=== PATIENT | female | born 1995 | race African-American/Black ===

== ENCOUNTER 2021-03-19 13:54 | Observation (INO) | payer MEDICAID ==
[~2021-03-19] VITALS: Ht 157.5 cm; Wt 78.0 kg
[2021-03-19] MEDS ORDERED: FERR-63 PO (14:20)
[2021-03-19] MEDS ORDERED: PREN1TAB22 PO (14:20)
== END 2021-03-19 16:55 | disposition home or self-care (01) ==
LOC: 8 EST LDRP 13:54
PROVIDERS: ADMIT Obstetrics & Gynecology; ATTEND Obstetrics & Gynecology
DX: O26.893 Other specified pregnancy related conditions, third trimester (principal); R10.30 Lower abdominal pain, unspecified; Z3A.38 38 weeks gestation of pregnancy
CPT/HCPCS: 59025; G0378; 99281; G0379

== ENCOUNTER 2021-03-19 19:26 | Inpatient (IN) | payer MEDICAID ==
[~2021-03-19] VITALS: Ht 157.5 cm; Wt 70.3 kg
[~2021-03-19 19:26] MED LIST: FERR-63 PO; PREN1TAB22 PO
[2021-03-19] MEDS ORDERED: LIDOCAINE HCL 1% 20ML VIAL (Pyxis) INJ INFIL SCH (20:15)
[2021-03-19] MEDS ORDERED: NALOXONE HCL 0.4 MG/ML 1ML VIAL IM PRN (20:15)
[2021-03-19] MEDS ORDERED: DEXT 5%/LR + PITOCIN 20UNITS/L 1,000 ML IV SCH ×2 (20:15→21:30)
[2021-03-19] MEDS ORDERED: LACTATED RINGERS 1,000 ML IV SCH (20:15)
[2021-03-19] MEDS ORDERED: CARBOPROST TROMETHAMINE 250 MCG/ML AMPUL IM PRN (20:15)
[2021-03-19] MEDS ORDERED: METHYLERGONOVINE MALEATE 0.2 MG/ML IM PRN (20:15)
[2021-03-19] MEDS ORDERED: BUTORPHANOL TARTRATE 2 MG/ML VIAL IV PRN (20:15)
[2021-03-19] MEDS ORDERED: IBUPROFEN 400MG TABLET PO PRN (21:30)
[2021-03-19] MEDS ORDERED: GLYCERIN/WITCH HAZEL LEAF MEDICATED PAD TOP PRN (21:30)
[2021-03-19] MEDS ORDERED: LANOLIN OINT 7GM TUBE TOP PRN (21:30)
[2021-03-19] MEDS ORDERED: DIPHENHYDRAMINE 25MG CAPSULE PO PRN (21:30)
[2021-03-19] MEDS ORDERED: BISACODYL 10MG SUPP PR PRN (21:30)
[2021-03-19] MEDS ORDERED: RHO(D) IMMUNE GLOBULIN 300 MCG/SYR IM PRN (21:30)
[2021-03-19] MEDS ORDERED: BENZOCAINE/LANOLIN/ALOE VERA SPRAY TOP PRN (21:30)
[2021-03-19] MEDS: ACETAMINOPHEN WITH CODEINE 300/30MG TABLET PO PRN (21:40)
[2021-03-19] MEDS: IBUPROFEN 800MG TABLET PO PRN (22:41)
[2021-03-20] VITALS: BP 101/63
[2021-03-20 00:20] LABS: CLARITY URINE CLEAR (CLEAR); COLOR URINE YELLOW (YELLOW); KETONES URINE 3+ (NEGATIVE); LEUKOCYTE ESTERASE URINE NEGATIVE (NEGATIVE); NITRITE URINE NEGATIVE (NEGATIVE); OCCULT BLOOD URINE 3+ (NEGATIVE); PROTEIN URINE TRACE (NEGATIVE); SPECIFIC GRAVITY URINE 1.042 (1.005-1.030); UROBILINOGEN URINE 0.2 E.U./dL (0.2-1.0)
[2021-03-20 00:44] LABS: *COCAINE SCREEN URINE NEGATIVE (NEGATIVE); METHADONE URINE SCREEN NEGATIVE (NEGATIVE); OPIATES URINE SCREEN NEGATIVE (NEGATIVE); PHENCYCLIDINE URINE SCREEN NEGATIVE (NEGATIVE)
[2021-03-20 00:45] LABS: *AMPHETAMINES SCREEN URINE NEGATIVE (NEGATIVE); *BARBITURATES SCREEN URINE NEGATIVE (NEGATIVE); *BENZODIAZEPINES SCREEN URINE NEGATIVE (NEGATIVE); CANNABINOID URINE SCREEN NEGATIVE (NEGATIVE)
[2021-03-20] MEDS: ACETAMINOPHEN WITH CODEINE 300/30MG TABLET PO PRN (02:15)
[2021-03-20 04:00] VITALS: BP 109/42
[2021-03-20] MEDS: IBUPROFEN 800MG TABLET PO PRN ×3 (06:16→19:00)
[2021-03-20 06:38] LABS: BASOPHILS % 0.3 % (0.0-2.0); EOSINOPHILS % 0.4 % (0.0-5.0); HEMATOCRIT. 27.9 % (36.0-48.0); HEMOGLOBIN. 9.4 g/dL (12.0-16.0); LYMPHOCYTES % 20.5 % (20.0-50.0); MEAN CORPUSCULAR HEMOGLOBIN 31.4 pg (28.0-32.0); MEAN CORPUSCULAR VOLUME 93.4 fL (81.0-99.0); MEAN PLATELET VOLUME 9.2 fl (7.4-10.4); MONOCYTES % 7.9 % (2.0-8.0); NEUTROPHILS % 70.9 % (40.0-76.0); PLATELET 200 x1000/uL (130-400); RED BLOOD CELL COUNT 2.99 mill/uL (4.2-5.4); RED CELL DISTRIBUTION WIDTH 18.3 % (11.6-14.6)
[2021-03-20 07:19] LABS: HEPATITIS B SURFACE ANTIGEN NEGATIVE
[2021-03-20 08:00] VITALS: BP 98/51
[2021-03-20] MEDS: PRENATAL VIT/FE FUMARATE/FA TABLET PO SCH (11:10)
[2021-03-20 16:59] VITALS: BP 97/59
[2021-03-20 20:00] VITALS: BP 108/75
[2021-03-20] MEDS ORDERED: DOCUSATE SODIUM 100MG CAPSULE PO SCH (21:00)
[2021-03-20] MEDS: SIMETHICONE 80MG TABLET CHEW PO SCH (21:46)
[2021-03-20] MEDS: MAGNESIUM/ALUMINUM HYDROXIDE/SIMETHICONE 30ML UDC PO SCH (21:46)
[2021-03-21 04:00] VITALS: BP 118/73
[2021-03-21 07:42] VITALS: BP 118/70
[2021-03-21] MEDS: PRENATAL VIT/FE FUMARATE/FA TABLET PO SCH (08:54)
[2021-03-21] MEDS: MAGNESIUM/ALUMINUM HYDROXIDE/SIMETHICONE 30ML UDC PO SCH (08:54)
[2021-03-21] MEDS: SIMETHICONE 80MG TABLET CHEW PO SCH (08:55)
== END 2021-03-21 12:05 | disposition home or self-care (01) | DRG 560 ==
LOC: OBSVTOIN 19:26 → 8 EST LDRP 19:26 → 8EST 22:41
PROVIDERS: ADMIT Obstetrics & Gynecology; ATTEND Obstetrics & Gynecology
PROC: 10E0XZZ Delivery of Products of Conception, External Approach (ICD-10-PCS; principal; 2021-03-21)
DX: O80 Encounter for full-term uncomplicated delivery (principal); Z37.0 Single live birth; Z20.822 Contact with and (suspected) exposure to COVID-19; Z3A.39 39 weeks gestation of pregnancy
CPT/HCPCS: 36415; 80305; 81003; 85025; 86592; 86703; 86762; 86850; 86900; 87340; 87426; 99281; J2590